=== PATIENT | male | born 1980 | race Caucasian/White ===

== ENCOUNTER 2016-06-23 09:33 | Emergency (ER) | payer MEDICAID ==
[2016-06-23 11:01] LABS: CARBON DIOXIDE 29.9 mmol/L (21-32); CHLORIDE SERUM 104 mmol/L (98-107); CREATININE SERUM 0.8 mg/dL (0.7-1.3); GFR1 > 60 mL/min; GLUCOSE SERUM 103 mg/dL (74-106); POTASSIUM SERUM 3.8 mmol/L (3.5-5.1); SODIUM SERUM 142 mmol/L (136-145)
[2016-06-23 11:41] VITALS: BP 123/81
== END 2016-06-23 11:41 | disposition home or self-care (01) ==
LOC: ED 09:33
PROVIDERS: Emergency Medicine
DX: B34.9 Viral infection, unspecified (principal); R03.0 Elevated blood-pressure reading, without diagnosis of hypertension
CPT/HCPCS: J1885; Q0092; Q0162

== ENCOUNTER 2016-09-12 11:04 | Emergency (ER) | payer SELFPAY ==
[~2016-09-12] VITALS: Ht 180.3 cm; Wt 65.0 kg
[2016-09-12 12:20] VITALS: BP 118/64
== END 2016-09-12 12:20 | disposition home or self-care (01) ==
LOC: ED 11:04
DX: S90.31XA Contusion of right foot, initial encounter (principal); W22.8XXA Striking against or struck by other objects, initial encounter; Y93.89 Activity, other specified; Y99.8 Other external cause status; Y92.89 Other specified places as the place of occurrence of the external cause
CPT/HCPCS: Q0092